=== PATIENT | female | born 1980 | race Caucasian/White ===

== ENCOUNTER → 2020-05-15 09:28 | Outpatient (BNVA) | payer OTHER, SELFPAY | PROVIDERS: Visit Provider Obstetrics & Gynecology | DX: Z01.419 Encounter for gynecological examination (general) (routine) without abnormal findings (principal); Z31.69 Encounter for other general counseling and advice on procreation | CPT/HCPCS: 81025 ==

== ENCOUNTER 2020-06-18 10:37 | Outpatient (REF) | payer MEDICAID, SELFPAY ==
[2020-06-18 13:22] LABS: HCG Quantitative 64 mIU/mL
== END 2020-06-18 10:38 | disposition home or self-care (01) ==
LOC: HO.LAB 10:37
PROVIDERS: PCP Family Medicine; Visit Provider Advanced Practice Midwife
DX: O09.519 Supervision of elderly primigravida, unspecified trimester (principal); N92.6 Irregular menstruation, unspecified; K21.9 Gastro-esophageal reflux disease without esophagitis; Z3A.00 Weeks of gestation of pregnancy not specified
CPT/HCPCS: 36415; 81025; 84702; 99212

== ENCOUNTER 2020-06-20 10:07 | Outpatient (REF) | payer MEDICAID, SELFPAY ==
[2020-06-20 11:40] LABS: HCG Quantitative 63 mIU/mL
== END 2020-06-20 10:08 | disposition home or self-care (01) ==
LOC: HO.LAB 10:07
PROVIDERS: PCP Family Medicine; Visit Provider Advanced Practice Midwife
DX: N92.6 Irregular menstruation, unspecified (principal)
CPT/HCPCS: 36415; 84702

== ENCOUNTER 2020-06-22 08:29 | Outpatient (REF) | payer MEDICAID, SELFPAY ==
[2020-06-22 10:00] LABS: HCG Quantitative 32 mIU/mL
== END 2020-06-22 08:30 | disposition home or self-care (01) ==
LOC: HO.LAB 08:29
PROVIDERS: Visit Provider Advanced Practice Midwife
DX: O20.0 Threatened abortion (principal); N92.6 Irregular menstruation, unspecified; Z88.0 Allergy status to penicillin; Z3A.00 Weeks of gestation of pregnancy not specified
CPT/HCPCS: 36415; 84702; 99212

== ENCOUNTER 2020-06-24 10:49 | Outpatient (REF) | payer MEDICAID, SELFPAY ==
[2020-06-24 12:49] LABS: HCG Quantitative 5 mIU/mL
== END 2020-06-24 10:50 | disposition home or self-care (01) ==
LOC: HO.LAB 10:49
PROVIDERS: PCP Family Medicine; Visit Provider Advanced Practice Midwife
DX: O03.9 Complete or unspecified spontaneous abortion without complication (principal)
CPT/HCPCS: 36415; 84702